=== PATIENT | female | born 1995 | race Caucasian/White ===

== ENCOUNTER 2025-08-09 19:51 | Emergency (ER) | payer OTHER, SELFPAY ==
--- OUTSIDE RECORDS SUMMARY | 2025-07-20 11:00 | XMS_ITS | Encounter Summary ---
[facility] Organization [facility] Address [address] [place] [address] Care Team Providers Care Core Sticker Name Role Phone Urban Huerta MD Primary Care Provider +1- [phone] Reason for Visit * Reason Comments CONSULT Encounter Details Date Type Department Care Team (Late st Contact Info) Description 07/20/2025 11:00 AM CDT Office Visit [facility] [place] [facility]-MARKET DEVELOPMENT TRAINER [place] [address] [place], [place] [address] Sophy Bianchi MD [address] [place], [place] [address] Irregular periods/menstrual cycles (Primary Dx); Morbid obesity (HRC); Bicornuate uterus Social History Tobacco Use Types Packs/Day Years Used Date Smoking Tobacco: Never Tobacco Cessation:Counseling Given: No Alcohol Use Standard Drinks/Week Comments Never 0 (1 standard drink = 0.6 oz pur e alcohol) Comments No Sex and Gender Information Value Date Recorded Sex Assigned at Not on file Legal Sex Female 5:39 AM CDT Gender Identity Not on file Sexual Orientation Lesbian 07/20/2025 10 :56 AM CDT documented as of this encounter Last Filed Vital Signs Vital Sign Reading Time Taken Comments Blood Pressure 122/92 07/20/2025 10:55 AM CDT Pulse 96 07/20/2025 10:55 AM CDT Temperature - - Respiratory Rate - - Oxygen Saturation - - Inhaled Oxygen Concentration - - Weight 167.8 kg (370 lb) 07/20/2025 10:55 AM CDT Height - - Body Mass Index - - documented in this encounter Progress Notes * Sophy Bianchi MD - 07/20/2025 11:00 AM CDT Chief Complaint Patient presents with CONSULT HPI: 29 y.o. presents for consultation as she would like to have a baby. , same sex relationship. They have a male selected to be their sperm donor and want to start with artifical insemination at home. Other than her morbid obesity her health has been good. As fas as ob gyn issues she has a long hx of irregular periods, has never been able to detect any ovulation. Currently on an OCPfor cycle control. She had been working with a MARKET DEVELOPMENT TRAINER out of [facility] and had a pelvic ultrasound this past summer suggestive of PCOS and a septate vs bicornuate uterus. She does not believe she has had hormone testing yet. She did have a hysteroscopy this summer to remove polyps and look at the septum.OP note not available for my review but she states the septum was described as broad based and thick and was not resected. Of note she is currently taking Zepbound and plans to continue this until she conceives as she has already lost 70 lbs and does nto want to lose the progress she has made in case it takes her awhile to conceive. Past Medical History[1] Past Surgical History[2] Social History Tobacco Use Smoking status: Never Smokeless tobacco: Not on file Substance Use Topics Alcohol use: Never Physical Exam: Filed Vitals: 07/20/25 1055 BP: (!) 122/92 Pulse: 96 Weight: (!) 370 lb (167.8 kg) General: in no apparent distress Assessment/Plan: ICD-10-CM 1. Irregular periods/menstrual cycles N92.6 Anti-Mullerian Hormone, Adult Females FSH Hgb A1C TSH Androstenedione DHEA Sulfate (17) [place] Progesterone Testosterone, female or children Progesterone Adult letrozole (FEMARA) 2.5 MG tablet 2. Morbid obesity (HRC) E66.01 3. Bicornuate uterus Q51.3 Labs as above to finish her fertility evaluation. Discussed ovulation induction with letrozole day 3-7 of her cycle. She will then start ovulation testing on day 10 of her cycle with home insemination based on that. On day 22-24 of her cycle she will come in for a progesterone level to confirm ovulation. If non- ovulatory will end the cycle with Provera and increase the Letrozole dose for the nextcycle. Once we know she is ovulating would try this for 3-6 months before going to formal IUI. I did let her know that we do not offer IUI here at [facility]. We also had a yonathan discussion about being on Zepbound in the preconception period. Typically we would have women go off of their GLP-1 me dication 2 months prior to conception. She plans to continue until she has a + test. I lether know that we have no data on the safety of this in as far as complications with the itself or teratogen/miscarriage data. Ultimately it is her decision. All questions answered. Will continue to follow. Billing based on : ELAINA Bianchi MD [1] Past Medical History: Diagnosis Date Bicornuate uterus 07/20/2025 Endometrial polyp s/p hysteroscopy April 2025 Irregular periods/menstrual cycles 07/20/2025 ?PCOS Morbid obesity (HRC) 07/20/2025 [2] Past Surgical History: Procedure Laterality Date OPERATIVE HYSTEROSCOPY 04/2025 endometrial polyps documented in this encounter Plan of Treatment Upcoming Encounters Date Type Department Care Team (Late st Contact Info) Description 08/15/2025 10:00 AM CDT Appointment [facility] [address] [place] [address] Scheduled Orders Name Type Priority Associated Diagnoses Orde r Schedule Progesterone Adult Lab Routine Irregular periods/menstrual cycles Expected: 08/19/2025 (Approximate), Expires: 11/17/2025 documented as of this encounter Results * Testosterone, female or children (07/20/2025 11:22 AM CDT) Testosterone Female or Children 45 9 - 55 ng/dL 07/24/2025 1:58 PM CDT [facility] Comment: REFERENCE INTERVAL: Testosterone by Clinical Laboratory Service Teacher Females Premenopausal 9-55 ng/dL Postmenopausal 5-32 ng/dL INTERPRETIVE INFORMATION: Testosterone by Clinical Laboratory Service Teacher Free or bioavailable testosterone measurements may provide supportive information. For individuals on testosterone-suppressing hormone therapies (e.g., antiandrogens or estrogens), refer to cisgender female reference intervals. For a complete set of all established reference intervals, refer to ltd.[employer]/Tests/Pub/1551161. This test was developed and its performance characteristics determined by [employer]. It has not been cleared or approved by the US Food and Drug Administration. This test was performed in a CLIA certified laboratory and is intended for clinical purposes. Performed By: [employer] [address] [place] [address] Information Technology Coordinator: Paolo Brewer MD, PhD CLIA Number: [id number] Blood Venipuncture / Unknown 07/20/2025 11:22 AM CDT 07/20/2025 11:22 AM CDT Sophy Bianchi MD LAB_1 Final Result [email or web address] CLIA: [id number] [address] [place] [address] * (17) [place] Progesterone (07/20/2025 11:22 AM CDT) 17-Hydroxyprogester one, HPLC-MS/MS 28.70 <=206.00 ng/dL 07/25/2025 4:51 AM CDT [employer] Comment: INTERPRETIVE INFORMATION for 17-Hydroxyprogesterone in females: Follicular 15 to 70 ng/dL Luteal 35 to 290 ng/dL REFERENCE INTERVAL: 17-Hydroxyprogesterone Qnt, HPLC-MS/MS Access complete set of age- and/or gender-specific reference intervals for this test in the [facility]- [facility] Test Directory ([employer]). This test was developed and its performance characteristics determined by [employer]. It has not been cleared or approved by the US Food and Drug Administration. This test was performed in a CLIA certified laboratory and is intended for clinical purposes. Performed By: [employer] [address] [place] [address] Information Technology Coordinator: Paolo Brewer MD, PhD CLIA Number: [id number] Blood Venipuncture / Unknown 07/20/2025 11:22 AM CDT 07/20/2025 11:22 AM CDT Sophy Bianchi MD LAB_1 Final Result Performing Organization Address City/[facility]/ZIP Co de Phone Number [facility] CLIA: [id number] [address] * DHEA Sulfate (07/20/2025 11:22 AM CDT) DHEA Sulfate 172 23 - 266 mcg/dl 07/21/2025 10:24 AM CDT [facility] Blood Venipuncture / Unknown 07/20/2025 11:22 AM CDT 07/20/2025 11:22 AM CDT Sophy Bianchi MD LAB_1 Final Result Performing Organization Address City/[facility]/ZIP Co de Phone Number [facility] CLIA: [id number] [address] [place] [address] * Androstenedione (07/20/2025 11:22 AM CDT) Androstenedione 1.105 0.260 - 2.140 ng/mL 07/24/2025 1:58 PM CDT [facility] Comment: INTERPRETIVE INFORMATION: Androstenedione, Females 18 years and older Post-menopausal: 0.13-0.82 ng/mL REFERENCE INTERVAL: Androstenedione by TMS Access complete set of age- and/or gender-specific reference intervals for this test in the nap- [facility] Test Directory ([employer]). This test was developed and its performance characteristics determined by [employer]. It has not been cleared or approved by the US Food and Drug Administration. This test was performed in a CLIA certified laboratory and is intended for clinical purposes. Performed By: [employer] [address] [place] [address] Information Technology Coordinator: Paolo Brewer MD, PhD CLIA Number: [id number] Blood Venipuncture / Unknown 07/20/2025 11:22 AM CDT 07/20/2025 11:22 AM CDT Result Venkatesh Bianchi MD LAB_1 Final Result [facility] CLIA: [id number] [address] [id number] * TSH (07/20/2025 11:22 AM CDT) Pathologist [facility] TSH, Sensitive 2.34 0.30 - 4.50 uIU/mL 07/20/2025 2:49 PM CDT [facility] Blood Venipuncture / Unknown 07/20/2025 11:22 AM CDT 07/20/2025 11:22 AM CDT us Sophy Bianchi MD LAB_1 Final Result Performing Organization Address City/[facility]/ZIP Co de Phone Number [facility] CLIA: [id number] [address] [place] [address] * Hgb A1C (07/20/2025 11:22 AM CDT) Pathologist [facility] Hemoglobin A1C 5.5 <=5.6 % 07/20/2025 5:29 PM CDT [facility] Estimated Average Glucose (Calc) 111 < 117 mg/dL 07/20/2025 5:29 PM CDT [facility] Comment:Estimated average gl ucose (eAG) converts A1c into glucose units (mg/dL) and estimates average glucose over the past approximately 3 months. The eAG reference interval (<117 mg/dL) corresponds to an A1c of <5.7%. Blood Venipuncture / Unknown 07/20/2025 11:22 AM CDT 07/20/2025 11:22 AM CDT Result Venkatesh Bianchi MD LAB_1 Final Result [facility] CLIA: [id number] [address] * FSH (07/20/2025 11:22 AM CDT) FSH 1.4 mIU/mL 07/20/2025 2:49 PM CDT [facility] Blood Venipuncture / Unknown 07/20/2025 11:22 AM CDT 07/20/2025 11:22 AM CDT Narrative [facility] - 07/20/2025 2:49 PM CDT Expected values for mensturating females Follicular Phase: 3.0-8.1 mIU/mL Mid-Cycle Peak: 2.6-16.7 mIU/mL Luteal Phase: 1.4-5.5 mIU/mL Post Menopausal Females without HRT: 26.8-133.4 mIU/mL Sophy Bianchi MD LAB_1 Final Result [facility] CLIA: [id number] [address] [place] [address] * Anti-Mullerian Hormone, Adult Females (07/20/2025 11:22 AM CDT) Pathologist [facility] Anti-M llerian Hormone, Adult Females 1.22 0.36 - 10.07 ng/mL 07/21/2025 10:57 AM CDT [facility] Blood Venipuncture / Unknown 07/20/2025 11:22 AM CDT 07/20/2025 11:22 AM CDT us Sophy Bianchi MD LAB_1 Final Result [facility] CLIA: [id number] [address] documented in this encounter Visit Diagnoses Diagnosis Irregular periods/menstrual cycles- Primary Irregular menstrual cycle Morbid obesity (HRC) Morbid obesity Bicornuate uterus documented in this encounter Care Teams Core Sticker Relationship Specialty Start Date End Date Urban Huerta MD [facility] [place] [address] PCP - General 10/31/19 documented as of this encounter
--- OUTSIDE RECORDS SUMMARY | 2025-07-20 11:30 | XMS_ITS | Encounter Summary ---
Author Organization [facility] Address [address], [place] [address] Care Team Providers Care Ethernet Network Architect Name Role Phone Urban Huerta MD Primary Care Provider +1- [phone] Encounter Details Date Type Department Care Team (Late st Contact Info) Description 07/20/2025 11:30 AM CDT Lab Visit [address] [address] Irregular periods/menstrual cycles Social History Tobacco Use Types Packs/Day Years Used Date Smoking Tobacco: Never Alcohol Use Standard Drinks/Week Comments Never 0 (1 standard drink = 0.6 oz pur e alcohol) Comments No Sex and Gender Information Value Date Recorded Sex Assigned at Not on file Legal Sex Female 5:39 AM CDT Gender Identity Not on file Sexual Orientation Lesbian 07/20/2025 10 :56 AM CDT documented as of this encounter Plan of Treatment Upcoming Encounters Date Type Department Care Team (Late st Contact Info) Description 08/15/2025 10:00 AM CDT Appointment [facility] [address] [place] [address] documented as of this encounter Procedures Procedure Name Priority Date/Time Associated Diagnosis Comments ANDROSTENEDIONE Routine 07/20/2025 11:22 AM CDT Irregular periods/menstrual cycles TESTOSTERONE, FEMALE OR CHILDREN Routine 07/20/2025 11:22 AM CDT Irregular periods/menstrual cycles ANTI-MULLERIAN HORMONE,ADULT FEMALE Routine 07/20/2025 11:22 AM CDT Irregular periods/menstrual cycles TSH, SENSITIVE Routine 07/20/2025 11:22 AM CDT Irregular periods/menstrual cycles DHEA SULFATE Routine 07/20/2025 11:22 AM CDT Irregular periods/menstrual cycles (17) [place] PROGESTERONE PLASMA/SE Routine 07/20/2025 11:22 AM CDT Irregular periods/menstrual cycles FSH Routine 07/20/2025 11:22 AM CDT Irregular periods/menstrual cycles HGB A1C Routine 07/20/2025 11:22 AM CDT Irregular periods/menstrual cycles documented in this encounter Results * Testosterone, female or children (07/20/2025 11:22 AM CDT) Testosterone Female or Children 45 9 - 55 ng/dL 07/24/2025 1:58 PM CDT [employer] Comment: REFERENCE INTERVAL: Testosterone by Scalp Specialist Females Premenopausal 9-55 ng/dL Postmenopausal 5-32 ng/dL INTERPRETIVE INFORMATION: Testosterone by Scalp Specialist Free or bioavailable testosterone measurements may provide supportive information. For individuals on testosterone-suppressing hormone therapies (e.g., antiandrogens or estrogens), refer to cisgender female reference intervals. For a complete set of all established reference intervals, refer to l[employer]/Tests/Pub/[id number]. This test was developed and its performance characteristics determined by [email or web address]. It has not been cleared or approved by the US Food and Drug Administration. This test was performed in a CLIA certified laboratory and is intended for clinical purposes. Performed By: [email or web address] [address] [place] [address] Vp Rheumatology: Paolo Brewer MD, PhD CLIA Number: [id number] Blood Venipuncture / Unknown 07/20/2025 11:22 AM CDT 07/20/2025 11:22 AM CDT Sophy Bianchi MD LAB_1 Final Result Performing Organization Address [facility] Co de Phone Number [facility] [employer] CLIA: [id number] [address] * (17) [place] Progesterone (07/20/2025 11:22 AM CDT) 17-Hydroxyprogester one, HPLC-MS/MS 28.70 <=206.00 ng/dL 07/25/2025 4:51 AM CDT [employer] Comment: INTERPRETIVE INFORMATION for 17-Hydroxyprogesterone in females: Follicular 15 to 70 ng/dL Luteal 35 to 290 ng/dL REFERENCE INTERVAL: 17-Hydroxyprogesterone Qnt, HPLC-MS/MS Access complete set of age- and/or gender-specific reference intervals for this test in the [employer] Test Directory ([employer]). This test was developed and its performance characteristics determined by [email or web address]. It has not been cleared or approved by the US Food and Drug Administration. This test was performed in a CLIA certified laboratory and is intended for clinical purposes. Performed By: [email or web address] [address] [place] [address] Vp Rheumatology: Paolo Brewer MD, PhD CLIA Number: [id number] Blood Venipuncture / Unknown 07/20/2025 11:22 AM CDT 07/20/2025 11:22 AM CDT Sophy Bianchi MD LAB_1 Final Result Performing Organization Address City/[facility]/ZIP Co de Phone Number [facility] [employer] CLIA: [id number] [address] * DHEA Sulfate (07/20/2025 11:22 AM CDT) DHEA Sulfate 172 23 - 266 mcg/dl 07/21/2025 10:24 AM CDT [facility] Blood Venipuncture / Unknown 07/20/2025 11:22 AM CDT 07/20/2025 11:22 AM CDT Sophy Bianchi MD LAB_1 Final Result Performing Organization Address City/[facility] Co de Phone Number [facility] CLIA: [id number] [address] * Androstenedione (07/20/2025 11:22 AM CDT) Androstenedione 1.105 0.260 - 2.140 ng/mL 07/24/2025 1:58 PM CDT [employer] Comment: INTERPRETIVE INFORMATION: Androstenedione, Females 18 years and older Post-menopausal: 0.13-0.82 ng/mL REFERENCE INTERVAL: Androstenedione by TMS Access complete set of age- and/or gender-specific reference intervals for this test in the [facility] Test Directory ([employer]). This test was developed and its performance characteristics determined by [email or web address]. It has not been cleared or approved by the US Food and Drug Administration. This test was performed in a CLIA certified laboratory and is intended for clinical purposes. Performed By: [email or web address] [address] [place] [address] Vp Rheumatology: Paolo Brewer MD, PhD CLIA Number: [id number] Blood Venipuncture / Unknown 07/20/2025 11:22 AM CDT 07/20/2025 11:22 AM CDT Sophy Bianchi MD LAB_1 Final Result Performing Organization Address [facility]/ZIP Co de Phone Number [facility] [employer] CLIA: [id number] [address] [place] [address], [place] * TSH (07/20/2025 11:22 AM CDT) TSH, Sensitive 2.34 0.30 - 4.50 uIU/mL 07/20/2025 2:49 PM CDT [facility] Blood Venipuncture / Unknown 07/20/2025 11:22 AM CDT 07/20/2025 11:22 AM CDT Sophy Bianchi MD LAB_1 Final Result [facility] CLIA: [id number] [address] * Hgb A1C (07/20/2025 11:22 AM CDT) Hemoglobin A1C 5.5 <=5.6 % 07/20/2025 5:29 PM CDT [facility] Estimated Average Glucose (Calc) 111 < 117 mg/dL 07/20/2025 5:29 PM CDT [facility] Comment:Estimated average gl ucose (eAG) converts A1c into glucose units (mg/dL) and estimates average glucose over the past approximately 3 months. The eAG reference interval (<117 mg/dL) corresponds to an A1c of <5.7%. Blood Venipuncture / Unknown 07/20/2025 11:22 AM CDT 07/20/2025 11:22 AM CDT Sophy Bianchi MD LAB_1 Final Result [facility] CLIA: [id number] [address] [place] [address] * FSH (07/20/2025 11:22 AM CDT) FSH 1.4 mIU/mL 07/20/2025 2:49 PM CDT [facility] Blood Venipuncture / Unknown 07/20/2025 11:22 AM CDT 07/20/2025 11:22 AM CDT [facility] - 07/20/2025 2:49 PM CDT Expected values for mensturating females Follicular Phase: 3.0-8.1 mIU/mL Mid-Cycle Peak: 2.6-16.7 mIU/mL Luteal Phase: 1.4-5.5 mIU/mL Post Menopausal Females without HRT: 26.8-133.4 mIU/mL us Sophy Bianchi MD LAB_1 Final Result [facility] CLIA: [id number] [address] [place], [place] [address] * Anti-Mullerian Hormone, Adult Females (07/20/2025 11:22 AM CDT) Anti-M llerian Hormone, Adult Females 1.22 0.36 - 10.07 ng/mL 07/21/2025 10:57 AM CDT [facility] Blood Venipuncture / Unknown 07/20/2025 11:22 AM CDT 07/20/2025 11:22 AM CDT Sophy Bianchi MD LAB_1 Final Result [facility] CLIA: [id number] [address] documented in this encounter Visit Diagnoses Diagnosis Irregular periods/menstrual cycles Irregular menstrual cycle documented in this encounter Care Teams Ethernet Network Architect Relationship Specialty Start Date End Date Urban Huerta MD [address] [place] [address] PCP - General 10/31/19 documented as of this encounter
--- OUTSIDE RECORDS SUMMARY | 2025-08-09 19:54 | XMS_ITS | Clinical Summary ---
Author Organization [facility] Address [address] [place] [id number] Care Team Providers Care Bread Icer Name Role Phone Alia Heart MD Primary Care Provi terri Allergies No known active allergies Medications [id number] ic acid ( 19) 29 mg iron- 1 mg chew Chew by mouth once daily. Active INOSITOL-D CHIRO INOSITOL ORAL Take 2 Tablets by mouth once daily. Active norethindrone- eth estradiol (0.5-35 mg-mcg) (Necon 0.5/35 (28)) 0.5-35 mg-mcg tabletIndicati ons:Irregular periods Take 1 Tablet by mouth once daily. 84 Tablet 3 04/17/20 25 Active medroxyPROGEST ERone (Provera) 10 mg tabletIndicati ons:Menorrhagi a with regular cycle TAKE 2 TIMES A DAY FOR 7 DAYS. 14 Tablet 3 05/10/20 25 Active ferrous sulfate 325 mg delayed release tabletIndicati ons:Anemia due to acute blood loss Take 1 Tablet (325 mg) by mouth once every other day. On empty stomach and with Vitamin C source. 45 Tablet 05/15/20 25 Active acetaminophen (TYLENOL) 325 mg tabletIndicati ons:Abnormal uterine bleeding (AUB) Take 1-2 Tablets (325-650 mg) by mouth every 4 hours if needed (mild pain). Max acetaminophen dose: 4000mg in 24 hrs. 05/16/20 25 Active ibuprofen (ADVIL; MOTRIN) 200 mg tabletIndicati ons:Abnormal uterine bleeding (AUB) Take 2-4 Tablets (400-800 mg) by mouth every 6 hours if needed for Pain (mild pain). 05/16/20 25 Active ubidecarenone/ vitamin E mixed (COQ10 SG 100 ORAL) Take by mouth. Ac tive Zepbound 15 mg/0.5 mL penIndications :Class 3 severe obesity with serious comorbidity and body mass index (BMI) of 60.0 to 69.9 in adult, unspecified obesity type (HC) ADMINISTER 15 MG UNDER THE SKIN 1 TIME WEEKLY 2 mL 2 07/25/20 25 Active tirzepatide (weight loss) (Zepbound) 15 mg/0.5 mL penIndications :Class 3 severe obesity with serious comorbidity and body mass index (BMI) of 60.0 to 69.9 in adult, unspecified obesity type (HC) Inject 15 mg subcutaneous once weekly. 2 mL 2 04/18/20 25 2024 Discontinued Active Problems Problem Noted Date Diagnosed Date Bicornuate uterus, partial 07/12/2025 Pap smear for cervical cancer screening 07/11/20 Overview (07/11/2024): 06/2024 NIL/HPV negative. Plan: Pap/HPV due 06/2029. Morbid obesity with BMI of 50.0-59.9, adult 07/28 Ganglion cyst of dorsum of right wrist 6 Elevated BP 08/25/2016 Resolved Problems Problem Noted Date Diagnosed Date Resolved Date Endometrial polyp 07/12/2025 07/12/2025 Encounters Date Type Department Care Team Description 07/20/[address] [address] Alia Heart MD Refill Request (Zepbound) 07/12/2025 10:55 AM CDT Office Visit [address] [address] Alia Heart MD Medication Management 07/12/2025 Travel 07/10/2025 Travel 07/03/2025 11:00 AM CDT Office Visit [facility] [address] [place] [address] [address] [place] [address] Ata Gudino MBBS Post-op (DOS 05/16/2025) 07/02/2025 Travel 05/16/2025 3:03 PM CDT Anesthesia Event [address] [address] Silva Abebe CRNA Nye, Hoyt William, MD 05/16/2025 12:32 PM CDT - 05/16/2025 1:47 PM CDT Surgery [address] [address] Ata Gudino MBBS HYSTEROSCOPY, DILATION AND CURETTAGE, POLYPECTOMY 05/16/2025 9:55 AM CDT - 05/16/2025 6:08 PM CDT Hospital Encounter [address] [address] Ata Gudino MBBS Abnormal uterine bleeding (AUB) (Primary Dx); Uterus, bicornuate Discharge Disposition: Home Self Care 05/15/2025 Travel 05/12/2025 10:00 AM CDT Office Visit [facility] [address] [place] [address] Clare Navarrete MD Pre-Op Exam 05/12/2025 Travel 05/09/2025 Telephone [facility] [address] [place] [address] Ata Gudino MBBS Medication Management (medroxyPROGESTERon e (Provera) 10 mg tablet) 05/09/2025 Travel from Last 3 Months Immunizations Immunization Administration Dates Next Due COVID-19 VACCINE SPIKEVAX (M ODERNA 50MCG/0.5ML) 12YO+ PFS 04/12/2024 COVID-19 vaccine (Moderna 100mcg/0.5mL) PFMDV 01/03/2021,12/06/2020 DTP 01/17/1999, 5,03/12/1994,1993,1993 Hepatitis B (Peds) 07/23/1994,1993, 993 Hib Conjugate, Unspecified 12/12/1994,,01/17/1994,1993 INFLUENZA, IIV3 PF (AGE >= 6 MO) 11/25/2024 Influenza Virus, Unspecified 2017 Influenza, IIV4 09/25/2021,2017,08/25/2016 MMR 01/17/1999,12/12/1994 Oral Polio Vaccine 01/17/1999, 5,01/17/1994,1993 Tdap 08/25/2016,07/08/2006 Tuberculin (PPD) 09/07/2012,08/27/2012 Varicella Vaccine 07/24/2003 Family History Medical History Relation Name Comments Hypertension Father Other Mother pre DM Relation Name Status Comments Father Mother Social History Tobacco Use Types Packs/Day Years Used Date Smoking Tobacco: Never Passive Smoke Exposure: Never Smokeless Tobacco: Never Tobacco Cessation:Counseling Given: Not Answered Alcohol Use Standard Drinks/Week Comments Not Currently 0 (1 standard drink = 0.6 oz pure alcohol) up to 7 drinks every other weekend PHQ-2 Answer Date Recorded PHQ-2 TOTAL SCORE 0 04/24/2025 Social Connections Answer Date Recorded Do you often feel lonely or isolated from those around you? 0 07/10/2025 Alcohol Use Answer Date Recorded How often do you have a drink containing alcohol ? 0 07/12/2025 Average Number of Drinks Not on file 025 How often do you have five or more drinks on one occasion? 0 07/12/2025 Financial Resource Strain Answer Date R ecorded Difficulty of Paying Living Expenses 3 04/20/2025 Difficulty of Paying Living Expenses Not on file 04/20/2025 Food Insecurity Answer Date Recorded Do you worry your food will run out before you are able to buy more? 1 07/10/2025 Transportation Needs Answer Date Record ed Does lack of transportation keep you from medica l appointments? 1 07/10/2025 Does lack of transportation keep you from work, meetings or getting things that you need? 1 07/10/2025 Housing Stability Answer Date Recorded What is your housing situation today? 1 07/10/2025 Utilities Answer Date Recorded Do you have trouble paying f or utilities (for example, heat, electricity, water, phone)? 1 07/10/2025 Comments No Sex and Gender Information Value Date Recorded Sex Assigned at Female 04/08/2024 8:03 PM CDT Legal Sex Female 5:30 AM [employer] Gender Identity Female 04/08/2024 8:03 PM CDT Sexual Orientation Lesbian or Tang 04/08/2024 8: 03 PM CDT Occupation Industry Job Start Date Job End Date [employer], draws blood Not on file Not on file Not o n file Obstetrics History Last Filed Vital Signs Vital Sign Reading Time Taken Comments Blood Pressure 120/86 07/12/2025 11:07 AM CDT Pulse 84 07/12/2025 11:07 AM CDT Temperature 36.4 C (97.5 F) 05/16/2025 5:32 PM CDT Respiratory Rate 18 05/16/2025 6:03 PM CDT Oxygen Saturation 99% 05/16/2025 6:03 PM CDT Inhaled Oxygen Concentration - - Weight 170.6 kg (376 lb 3.2 oz) 025 11:07 AM CDT Height 169.1 cm (5' 6.58) 07/12/2025 1 1:07 AM CDT Body Mass Index 59.68 07/12/2025 11:07 AM CDT Plan of Treatment Scheduled Procedures Name Priority Associated Diagnoses Date/Ti me SURGICAL PROCEDURE (TYPE PRO CEDURE DESCRIPTION BELOW) Endometrial polyp Health Maintenance Due Date Last Done Comments HPV series for age 9-45 (1 - 3-dose SCDM series) 2020 COVID-19 vaccine series ( season) 2025 04/12/2024, 09/08/2021, 01/03/2021, Additional history exists Influenza Vaccine (#1) 2025 , 09/25/2021, 2017, Additional history exists Depression screening for age 12+ 04/24/2026 04/24/2025, 04/12/2024, 09/25/2021, Additional history exists BMI (ht and wt on same day) for age 18+ 07/12/2026 07/12/2025, 04/17/2025, 04/12/2024, Additional history exists Tetanus booster 08/25/2026 08/25/2016, 07/08/2006 Pap test for age 21-65 06/29/2029 06/29/2024, 2023 RSV vaccine for adults or (1 - 1-dose 75+ series) 2068 Hepatitis B series for 19+ Completed 07/23, 1993, 1993 HIV for age 15-65 Completed 09/25/2021 Hepatitis C screening for age 18-79 Completed 09/25/2021 Pneumococcal series for age 6-49 Aged Out No longer eligible based on patient's age to complete this topic Procedures Procedure Name Priority Date/Time Associated Diagnosis Comments COMP METABOLIC PANEL Routine 07/12/2025 12:01 PM CDT Morbid obesity with BMI of 50.0-59.9, adult (HC) TSH WITH REFLEX Routine 07/12/2025 12:01 PM CDT Morbid obesity with BMI of 50.0-59.9, adult (HC) VITAMIN D 25 (DEFICIENCY) Routine 07/12/2025 12:01 PM CDT Morbid obesity with BMI of 50.0-59.9, adult (HC) LIPID PANEL W REFLEX MEASURED LDL Routine 07/12/2025 12:01 PM CDT Morbid obesity with BMI of 50.0-59.9, adult (HC) HEMOGLOBIN Routine 07/12/2025 12:01 PM CDT Anemia due to acute blood loss HEMOGLOBIN A1C Routine 07/12/2025 12:01 PM CDT Morbid obesity with BMI of 50.0-59.9, adult (HC) PATH TISSUE EXAM Today 05/16/2025 4:08 PM CDT SUPRAGLOTTIC-LMA Routine 05/16/2025 3:25 PM CDT HYSTEROSCOPY WITH MORCELLATOR Tier 4: > 90 days 05/16/2025 2:53 PM CDT Menorrhagia with regular cycle Case Notes T/F - 45MIN - @MAIN DUE TO BMI Special Needs HT 5' 6.5 WT 172.1 kg BMI 60.32 URINE Preop 05/16/2025 11:05 AM CDT SCAN-CARDIAC STRIP 05/16/2025 12 :00 AM CDT HEMOGLOBIN Routine 05/12/2025 11:31 AM CDT Lightheaded FERRITIN Routine 05/12/2025 11:31 AM CDT Lightheaded IRON PLUS IRON BINDING CAP Routine 05/12/2025 11:31 AM CDT Lightheaded HPV HIGH RISK Routine 06/29/2024 10:05 AM CDT Pap smear for cervical cancer screening ANTI HIV 1/2 Routine 09/25/2021 1:10 PM [employer] Annual physical exam ANTI HCV Routine 09/25/2021 1:10 PM E[employer] Annual physical exam from Last 3 Months or Most Recently Relevant to Health Maintenance Results * HEMOGLOBIN A1C (07/12/2025 12:01 PM CDT) HEMOGLOBIN A1C 5.4 <5.7 % 07/13/2025 5:59 AM CDT [facility] Comment: For the purpose of screening for the presence of diabetes: <5.7% Consistent with the absence of diabetes 5.7-6.4% Consistent with increased risk for diabetes (prediabetes) > or =6.5% Consistent with diabetes This assay result is consistent with a decreased risk of diabetes. Currently, no consensus exists regarding use of hemoglobin A1c for diagnosis of diabetes in children. According to [place] Diabetes Association (ADA) guidelines, hemoglobin A1c <7.0% represents optimal control in non- diabetic patients. Different metrics may apply to specific patient populations. Standards of Medical Care in Diabetes(ADA). Blood BLOOD SPECIMEN / Unknown [facility] / Unknown 07/12/2025 12:01 PM CDT 07/12/2025 12:01 PM CDT Alia Heart MD CHEMISTRY Fin al Result Performing Organization Address [facility]/ZIP Co de Phone Number [employer] [address] [address], * TSH WITH REFLEX (07/12/2025 12:01 PM CDT) TSH W/REFLEX TO FT4 2.57 mIU/L 07/13/2025 4:43 AM CDT [facility] Comment: Reference Range > or = 20 Years 0.40-4.50 Ranges First trimester 0.26-2.66 Second trimester 0.55-2.73 Third trimester 0.43-2.91 Blood BLOOD SPECIMEN / Unknown [facility] / Unknown 07/12/2025 12:01 PM CDT 07/12/2025 12:01 PM CDT us Alia Heart MD CHEMISTRY Fin al Result Performing Organization Address [facility]/ZIP Co de Phone Number [employer] [address] [address], * (ABNORMAL) LIPID PANEL W REFLEX MEASURED LDL (07/12/2025 12:01 PM CDT) CHOLESTEROL, TOTAL 204(H) <200 mg/dL 07/13/2025 5:38 AM CDT [facility] TRIGLYCERIDES 158(H) <150 mg/dL 07/13/2025 5:38 AM CDT [facility] HDL CHOLESTEROL 75 > OR = 50 mg/dL 07/13/2025 5:38 AM CDT [facility] NON HDL CHOLESTEROL 129 <130 mg/dL (calc) 07/13/2025 5:38 AM CDT [facility] Comment: For patients with diabetes plus 1 major ASCVD risk factor, treating to a non-HDL-C goal of <100 mg/dL (LDL-C of <70 mg/dL) is considered a therapeutic option. CHOL/HDLC RATIO 2.7 <5.0 (calc) 07/13/2025 5:38 AM CDT [facility] LDL-CHOLESTEROL 104(H) mg/dL (calc) 07/13/2025 5:38 AM CDT [facility] Comment: Reference range: <100 Desirable range <100 mg/dL for primary prevention; <70 mg/dL for patients with CHD or diabetic patients with > or = 2 CHD risk factors. LDL-C is now calculated using the Carloz calculation, which is a validated novel method providing better accuracy than the Friedewald equation in the estimation of LDL-C. Ganga SS et al. OMAR. 2013;310(19): 1047-1752 (http://education.[employer].RoleStar/faq/TMJ425) Blood BLOOD SPECIMEN / Unknown [facility] / Unknown 07/12/2025 12:01 PM CDT 07/12/2025 12:01 PM CDT Alia Heart MD CHEMISTRY Fin al Result [employer] [address] [address], * (ABNORMAL) VITAMIN D 25 (DEFICIENCY) (07/12/2025 12:01 PM CDT) [facility] VITAMIN D,25-OH,TOTAL,IA 28(L) 30 - 100 ng/mL 07/13/2025 4:43 AM CDT [employer] Comment: Vitamin D Status 25-OH Vitamin D: Deficiency: <20 ng/mL Insufficiency: 20 - 29 ng/mL Optimal: > or = 30 ng/mL For 25-OH Vitamin D testing on patients on D2-supplementation and patients for whom quantitation of D2 and D3 fractions is required, the QuestAssureD(TM) 25-OH VIT D, (D2,D3), LC/MS/MS is recommended: order code 06133 (patients >2yrs). See Note 1 Note 1 For additional information, please refer to http://education.[employer]/faq/XLI238 (This link is being provided for informational/ educational purposes only.) Blood BLOOD SPECIMEN / Unknown [facility] / Unknown 07/12/2025 12:01 PM CDT 07/12/2025 12:01 PM CDT Alia Heart MD SEND OUTS Fin al Result Performing Organization Address [facility] de Phone Number [employer] [address] [address], [place] [phone] * (ABNORMAL) HEMOGLOBIN (07/12/2025 12:01 PM CDT) Only the most recent of2 resultswithin the time period is included. HEMOGLOBIN 11.2(L) 11.7 - 15.5 g/dL 07/13/2025 3:24 AM CDT [facility] MCV 73.1(L) 80.0 - 100.0 fL 07/13/2025 3:24 AM CDT [facility] Blood BLOOD SPECIMEN / Unknown [facility] / Unknown 07/12/2025 12:01 PM CDT 07/12/2025 12:01 PM CDT us Alia Heart MD HEMATOLOGY Fin al Result Performing Organization Address [facility] Co de Phone Number [employer] [address] [address], [place] [phone] * COMP METABOLIC PANEL (07/12/2025 12:01 PM CDT) SODIUM 137 135 - 146 mmol/L 07/13/2025 5:38 AM CDT [facility] POTASSIUM 4.7 3.5 - 5.3 mmol/L 07/13/2025 5:38 AM CDT [facility] CHLORIDE 104 98 - 110 mmol/L 07/13/2025 5:38 AM CDT [facility] CARBON DIOXIDE 24 20 - 32 mmol/L 07/13/2025 5:38 AM CDT [facility] GLUCOSE 75 65 - 99 mg/dL 07/13/2025 5:38 AM CDT [facility] Comment: Fasting reference interval CALCIUM 9.3 8.6 - 10.2 mg/dL 07/13/2025 5:38 AM CDT [facility] CREATININE 0.63 0.50 - 0.97 mg/dL 07/13/2025 5:38 AM CDT [facility] BUN/CREATININE RATIO SEE NOTE: 6 - 22 (calc) 07/13/2025 5:38 AM CDT [facility] Comment: Not Reported: BUN and Creatinine are within reference range. EGFR 122 > OR = 60 mL/min/1. 73m2 07/13/2025 5:38 AM CDT [facility] ALBUMIN 3.8 3.6 - 5.1 g/dL 07/13/2025 5:38 AM CDT [facility] PROTEIN, TOTAL 7.5 6.1 - 8.1 g/dL 07/13/2025 5:38 AM CDT [facility] BILIRUBIN, TOTAL 0.2 0.2 - 1.2 mg/dL 07/13/2025 5:38 AM CDT [facility] ALKALINE PHOSPHATASE 93 31 - 125 U/L 07/13/2025 5:38 AM CDT [facility] ALT 22 6 - 29 U/L 07/13/2025 5:38 AM CDT [facility] AST 19 10 - 30 U/L 07/13/2025 5:38 AM CDT [facility] UREA NITROGEN (BUN) 9 7 - 25 mg/dL 07/13/2025 5:38 AM CDT [facility] GLOBULIN 3.7 1.9 - 3.7 g/dL (calc) 07/13/2025 5:38 AM CDT [facility] ALBUMIN/GLOBULI N RATIO 1.0 1.0 - 2.5 (calc) 07/13/2025 5:38 AM CDT [facility] Blood BLOOD SPECIMEN / Unknown [facility] / Unknown 07/12/2025 12:01 PM CDT 07/12/2025 12:01 PM CDT us Alia Heart MD CHEMISTRY Fin al Result [facility] [address] [place] [address], [place] [phone] * PATH TISSUE EXAM (05/16/2025 4:08 PM CDT) Case Report Pathology Report Case: [id number] Authorizing Provider: Ata Gudino MBBS Collected: 05/16/2025 1608 Ordering Location: [facility] Received: 05/17/2025 0727 Pathologist: Sunday Henry MD Specimen: Endometrial Curettings, Endometrial curettings and polyp 05/19/2025 11:36 AM CDT [facility] Final Diagnosis A) ENDOMETRIUM, CURETTAGE AND POLYPECTOMY: 1. Fragments of benign endometrial polyp(s) 2. Background inactive endometrium with progestin effect 3. Negative for atypia and malignancy 05/19/2025 11:36 AM CDT [facility] at 1136 CDT Clinical Information Prior diagnosis of endometrial polyps with focal glandular crowding ([id number]) 05/19/2025 11:36 AM CDT [facility] Gross Description A) Received fresh labeled with the patient's name and endometrial curettings and polyp, is a 2.7 gram, 2.3 x 2.3 x 0.8 cm aggregate of pink focally hemorrhagic soft tissue fragments within an aspirate collection stockinette. No lesion is seen. Entirely submitted in 3 cassettes. DPL 05/17/2025 05/19/2025 11:36 AM T [facility] Microscopic Description The final diagnosis is based on microscopic examination of appropriate sections of all specimens. 05/19/2025 11:36 AM CDT [facility] Additional Information Interpreted at [facility] - [address], [place] [address] 05/19/2025 11:36 AM T [facility] Tissue (Endometrial Curettings) 05/16/2025 4:08 PM CDT 05/17/2025 7:27 AM CDT Ata CHAPA PATHOLOGY/CYTOLOGY Final Re sult [facility] [address] [place] [address], [facility] SENDOUT INTERNAL ZIP [address] [place] [address] * [facility] PR5 (05/16/2025 3:25 PM CDT) Narrative Silva Abebe CRNA - 05/16/2025 3:25 PM CDT Silva Abebe CRNA 05/16/2025 3:25 PM Procedure: Supraglottic Patient location during procedure: OR Supraglottic Airway Properties Mask Ventilation: easy Type: unique Tube Size: 4 Insertion Attempts: 1 Placement Verification: auscultation and CO2 detection Assessment Assessment: atraumatic and dentition unchanged Silva Abebe GARMENT WORKER ANESTHESIA PX NOTE ORDER ARIANNE Final Result * Urine (05/16/2025 11:05 AM CDT) Pathologist [facility] ,URIN E Negative Negative 05/16/2025 11:18 AM CDT [facility] Urine URINE SPECIMEN / Unknown Non-Blood / Unknown 05/16/2025 11:05 AM CDT 05/16/2025 11:10 AM CDT Ata CHAPA URINE Final Resul t [facility] SENDOUT INTERNAL ZIP [phone] [place] [address] * SCAN-CARDIAC STRIP (05/16/2025 12:00 AM CDT) Narrative 05/16/2025 12:00 AM CDT Ordered by an unspecified provider. Other Clinical Staff OTHER Final Resul t * (ABNORMAL) IRON PLUS IRON BINDING CAP (05/12/2025 11:31 AM CDT) IRON, TOTAL 11(L) 40 - 190 mcg/dL [facility] IRON BINDING CAPACITY 527(H) 250 - 450 mcg/dL (calc) [facility] % SATURATION 2(L) 16 - 45 % (calc) [facility] Blood BLOOD SPECIMEN / Unknown 05/12/2025 11:31 AM CDT 05/12/2025 11:35 AM CDT Narrative [employer] - 05/13/2025 4:47 AM CDT FASTING:NO FASTING: NO Clare Navarrete MD CHEMISTRY Final Result Performing Organization Address [facility]/ZIP Co de Phone Number [employer] [facility] [address] [place] [address], [place] [phone] [facility] [address] [place] [address] * (ABNORMAL) FERRITIN (05/12/2025 11:31 AM CDT) FERRITIN 3(L) 16 - 154 ng/mL [facility] Blood BLOOD SPECIMEN / Unknown 05/12/2025 11:31 AM CDT 05/12/2025 11:35 AM CDT Narrative [facility] - 05/13/2025 5:28 AM CDT FASTING:NO FASTING: NO Clare Navarrete MD CHEMISTRY Final Result Performing Organization Address [facility] Co de Phone Number [employer] [facility] [address] [place] [address], [facility] [address] [place] [address] * HPV HIGH RISK (06/29/2024 10:05 AM CDT) TYPE 16 Negative Negative 07/01/2024 5:04 PM CDT [facility] TYPE 18 Negative Negative 07/01/2024 5:04 PM CDT [facility] OTHER HIGH RISK TYPES Negative Negative 07/01/2024 5:04 PM CDT [facility] Other (Cervical) Non-Blood / Unknown 06/29/2024 10:05 AM CDT 06/30/2024 3:50 PM CDT [facility] LABORATORY-CENTRAL LABORATORY - 07/01/2024 5:04 PM CDT HPV types 16, 18, 31, 33, 35, 39, 45, 51, 52, 56, 58, 59, 66 and 68 DNA were undetectable or below the pre-set threshold. Methodology: Ellie Mala 4800 HPV Test Alia Heart MD MICROBIOLOGY Fin al Result [facility] [address] [place] [address], * ANTI HCV (09/25/2021 1:10 PM [employer]) HEPATITIS C ANTIBODY Non-React francine Non-React francine 09/25/2021 10:42 PM [employer] [facility] Comment:Antibodies to HCV no t detected; does not exclude the possibility of exposure to HCV. Blood BLOOD SPECIMEN / Unknown Venipuncture / Unknown 09/25/2021 1:10 PM [employer] 09/25/2021 1:15 PM E[employer]IAN [employer]EARCH Alia Heart MD SEND OUTS Fin al Result Performing Organization Address [facility]/ZIP Co de Phone Number [facility] [address] [place] [address], * ANTI HIV 1/2 (09/25/2021 1:10 PM ELECTRICIAN RESEARCH) Pathologist [facility] HIV-1/HIV-2 ANTIBODY Non-Reacti ve Non-Reacti ve 09/25/2021 10:42 PM [employer]IAN [employer]EARCH [facility] Comment:HIV-1 p24 and HIV-1/ HIV-2 Ab not detected. Blood BLOOD SPECIMEN / Unknown Venipuncture / Unknown 09/25/2021 1:10 PM E[employer]IAN [employer]EARCH 09/25/2021 1:15 PM ELECT[employer]IAN RESEARCH Alia Heart MD SEND OUTS Fin al Result [facility] [address] [place] [address], from Last 3 Months or Most Recently Relevant to Health Maintenance Insurance MEDICA ELECT Advance Directives * Full Code (Latest Code Status on File) Date Activated Date Inactivated Comments 05/16/2025 10:40 AM 05/16/2025 8:13 PM Question Answer Comments Code Status Discussion: Reviewed Preferences * Full Code Date Activated Date Inactivated Comments 09/17/2007 8:24 AM 09/17/2007 12:58 PM Care Teams Bread Icer Relationship Specialty Start Date End Date Alia Heart MD [address] [place] [id number] PCP - General Family Practice 04/12/24
--- OUTSIDE RECORDS SUMMARY | 2025-08-09 19:54 | XMS_ITS | Encounter Summary ---
Author Organization [facility] Address [address], [place] [address] Care Team Providers Care Division Operations Manager Name Role Phone Urban Huerta MD Primary Care Provider +1- [phone] Reason for Visit * Reason Comments INFERTILITY Encounter Details Date Type Department Care Team (Late st Contact Info) Description 08/09/2025 Telephone [place] [facility] OB-SALES REPRESENTATIVE PRINTING [place] [address] [place] [address] Sophy Bianchi MD [address] [place], [place] [phone] INFERTILITY Social History Tobacco Use Types Packs/Day Years [...] AM CDT documented as of this encounter Nursing Notes * Honey Szymanski RN - 08/09/2025 11:29 AM CDT Contacted pt and reviewed message from Dr Bianchi. Pt acknowledges understanding and is already scheduled for the lab on 08/15/25 which will be CD 22. Pt just wanted to verify. Future Appointments Date Time Provider Department Center 08/15/2025 10:00 AM LAB, [facility] * Sophy Bianchi MD - 08/09/2025 11:19 AM CDT Yes per my last note the plan is: On day 22-24 of her cycle she will come in for a progesterone level to confirm ovulation. If non-ovulatory will end the cycle with Provera and increase the Letrozoledose for the next cycle. Orders are in. Sophy Bianchi MD * Gale Miguel RN - 08/09/2025 11:06 AM CDT Patient calling and is taking 2.5 mg Letrazole for 1st cycle. She is on CD16 and not ovulation. Using OPK strips and Diana kits as well. Using frozen donor sperm. She is wondering if she needs Progesterone done on cd 21 or not? Also, if she continues to not ovulate should she be increasing the dose next cycle? Thank you Future Appointments Date Time Provider Department Center 08/15/2025 10:00 AM LAB, [facility] documented in this encounter Plan of Treatment Upcoming Encounters Date Type Department Care Team (Late st Contact Info) Description 08/15/2025 10:00 AM CDT Appointment [facility] [address] [place] [address] documented as of this encounter Visit Diagnoses Not on filedocumented in this encounter Care Teams Division Operations Manager Relationship Specialty Start Date End Date Urban Huerta MD [address] [place] [address] PCP - General 10/31/19 documented as of this encounter
--- OUTSIDE RECORDS SUMMARY | 2025-08-09 19:54 | XMS_ITS | Clinical Summary ---
Author Organization [facility] Address [address] [place] [address] Care Team Providers Care Voice Engineer Name Role Phone Urban Huerta MD Primary Care Provider +1- [phone] Source Comments You are receiving this document as you are listed as the primary care provider,follow-up provider, or the patient has been referred to you for consultation.This is in compliance with the Medicare and[facility] EHR Incentive Program,which states Providers who transition their patient to another setting of careor provider of care or refers their patient to another provider of care shouldprovide summary care record for each transition of care or referral. [facility] Allergies No known active allergies Medications benzonatate (TESSALON) 100 MG capsule Take 2 Caps by mouth three times a day as needed for Cough. 60 Cap 8 Active Additional Information Patient not taking.Reported on 07/20/2025 Coenzyme Q10 (CO Q-10 OR) 1 Tablet daily. A ctive vitamin-ferrou s fumarate-folic acid (PRENATALPLUS) 27-1 MG tablet Take 1 Tablet by mouth daily. Active ferrous sulfate 325 (65 Fe) MG tablet Take 1 Tablet (325 mg) by mouth daily with meal. Active tirzepatide-we ight management (ZEPBOUND) 15 MG/0.5ML injection Inject 0.5 mL (15 mg) subcutaneously once every week. Active norethindrone- eth estradiol (NECON) 0.5-35 MG-MCG tablet Take 1 Tablet by mouth daily. Active INOSITOL OR 4 Tablets daily. A ctive letrozole (FEMARA) 2.5 MG tabletIndicati ons:Irregular periods/menstr ual cycles Take 1 Tablet (2.5 mg) by mouth daily for 5 days. Start on day 3 of your cycle 5 Tablet Active Active Problems Problem Noted Date Diagnosed Date Bicornuate uterus 07/20/2025 Morbid obesity 07/20/2025 Irregular periods/menstrual cycles 07/20/2025 Encounters Date Type Department Care Team Description 08/09/2025 Telephone [facility] OB-JACK FRAME TENDER [address] [address] Sophy Bianchi MD INFERTILITY 07/24/2025 Results Follow-Up [facility] OB-JACK FRAME TENDER [address] [address] Honey Szymanski RN 07/20/2025 11:30 AM CDT Lab Visit [facility] Laboratory [address] [address] Irregular periods/menstrual cycles 07/20/2025 11:00 AM CDT Office Visit [facility] OB-JACK FRAME TENDER [address] [address] Sophy Bianchi MD Irregular periods/menstrual cycles (Primary Dx); Morbid obesity (HRC); Bicornuate uterus 07/04/2025 Telephone [place] Certified Nurse Advertising Traffic Manager [address] [place] [address] Inessa Crawford APRN, CNM ERRONEOUS ENTRY 07/04/2025 Telephone [facility] OB-JACK FRAME TENDER [address] [address] Sophy Bianchi MD Appt. Needed from Last 3 Months Immunizations Immunization Administration Dates Next Due DTP 01/17/1999, 5,03/12/1994,1993,1993 Flu Vac Preserv Free (3+yrs) 11/25/2024 HepB Ped/Adol (0-18 yrs) 07/23/1994,1993,1 11/26/1992 Hib, Unspecified Formulation 12/12/1994, 03/12/1994,01/17/1994,1993 Influenza IIV4 (Quadrivalent ) 0.5mL (69202) 09/25/2021,2017,08/25/2016 MMR 01/17/1999,12/12/1994 Moderna COVID-19 12+ (Spikevax) 04/12/2024 Moderna Monovalent 12+ 09/08/2021,01/03/2021,08/2021 OPV, Trivalent (Orimune or tOPV) 999,12/12/1994,01/17/1994,1993 TB Skin Test (PPD) 09/07/2012,08/27/2012 Tdap 08/25/2016,07/08/2006 Varicella 08/27/2012(Deferred: Immune by Disease),07/24/2003 Social History Tobacco Use Types Packs/Day Years [...] Orientation Lesbian 07/20/2025 10 :56 AM CDT Last Filed Vital Signs Vital Sign Reading Time Taken Comments Blood Pressure 122/92 07/20/2025 10:55 AM CDT Pulse 96 07/20/2025 10:55 AM CDT Temperature 37.1 C (98.8 F) 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 Respiratory Rate - - Oxygen Saturation - - Inhaled Oxygen Concentration - - Weight 167.8 kg (370 lb) 07/20/2025 10:55 AM CDT Height - - Body Mass Index - - Plan of Treatment Upcoming Encounters Date Type Department Care Team (Late st Contact Info) Description 08/15/2025 10:00 AM CDT Appointment [address] [phone] Health Maintenance Due Date Last Done Comments Cervical Cancer Screening Due 1993 Hep C Screening (Preventive Services) 1993 Adult Preventive Visit 2011 HPV Vaccine (1 - 3-dose SCDM series) 2020 COVID-19 Vaccine ( - season) 2025 04/12/2024, 09/08/2021, 01/03/2021, Additional history exists Influenza Vaccine (#1) 2025 , 09/25/2021, 2017, Additional history exists DTaP/Tdap/Td Vaccine (8 - Tdap) 08/25/2026 08/25/2016, 07/08/2006, 01/17/1999, Additional history exists Zoster/Shingles Vaccine (1 of 2) 2043 HepB Vaccine Completed 07/23/1994, 10/26, 1993 Hib Vaccine Completed 12/12/1994, 02/23, 01/17/1994, Additional history exists IPV (Polio) Vaccine Completed 01/17/1999, 12/12/1994, 01/17/1994, Additional history exists HIV Screening (Preventive Services) Completed 09/25/2021 HepA Vaccine Aged Out No longer eligi ble based on patient's age to complete this topic MCV4 Vaccine Aged Out No longer eligi ble based on patient's age to complete this topic Meningococcal B Vaccine Aged Out No l onger eligible based on patient's age to complete this topic Pneumococcal Vaccine Aged Out No long er eligible based on patient's age to complete this topic Procedures Procedure Name Priority Date/Time Associated Diagnosis Comments TESTOSTERONE, FEMALE OR CHILDREN Routine 07/20/2025 11:22 AM CDT Irregular periods/menstrual cycles (17) [place] PROGESTERONE PLASMA/SE Routine 07/20/2025 11:22 AM CDT Irregular periods/menstrual cycles DHEA SULFATE Routine 07/20/2025 11:22 AM CDT Irregular periods/menstrual cycles ANDROSTENEDIONE Routine 07/20/2025 11:22 AM CDT Irregular periods/menstrual cycles TSH, SENSITIVE Routine 07/20/2025 11:22 AM CDT Irregular periods/menstrual cycles HGB A1C Routine 07/20/2025 11:22 AM CDT Irregular periods/menstrual cycles FSH Routine 07/20/2025 11:22 AM CDT Irregular periods/menstrual cycles ANTI-MULLERIAN HORMONE,ADULT FEMALE Routine 07/20/2025 11:22 AM CDT Irregular periods/menstrual cycles from Last 3 Months Results * Androstenedione (07/20/2025 11:22 AM CDT) Androstenedione 1.105 0.260 - 2.140 ng/mL 07/24/2025 1:58 PM CDT [facility] Comment: INTERPRETIVE INFORMATION: Androstenedione, Females 18 years and older Post-menopausal: 0.13-0.82 ng/mL REFERENCE INTERVAL: Androstenedione by TMS Access complete set of age- and/or gender-specific reference intervals for this test in the [facility] Test Directory ([facility]). This test was developed and its performance characteristics determined by [facility]. It has not been cleared or approved by the US Food and Drug Administration. This test was performed in a CLIA certified laboratory and is intended for clinical purposes. Performed By: [facility] [address] [place] [address] Contract Paralegal: Paolo Brewer MD, PhD CLIA Number: [id number] Blood Venipuncture / Unknown 07/20/2025 11:22 AM CDT 07/20/2025 11:22 AM CDT us Sophy Bianchi MD LAB_1 Final Result [facility] CLIA: [id number] [address] [place] [address], [facility] * Testosterone, female or children (07/20/2025 11:22 AM CDT) Testosterone Female or Children 45 9 - 55 ng/dL 07/24/2025 1:58 PM CDT [facility] Comment: REFERENCE INTERVAL: Testosterone by Publications Designer Females Premenopausal 9-55 ng/dL Postmenopausal 5-32 ng/dL INTERPRETIVE INFORMATION: Testosterone by Publications Designer Free or bioavailable testosterone measurements may provide supportive information. For individuals on testosterone-suppressing hormone therapies (e.g., antiandrogens or estrogens), refer to cisgender female reference intervals. For a complete set of all established reference intervals, refer to [employer]/Tests/Pub/[id number]. This test was developed and its performance characteristics determined by [facility]. It has not been cleared or approved by the US Food and Drug Administration. This test was performed in a CLIA certified laboratory and is intended for clinical purposes. Performed By: [facility] [address] [place] [address] Contract Paralegal: Paolo Brewer MD, PhD CLIA Number: [id number] Blood Venipuncture / Unknown 07/20/2025 11:22 AM CDT 07/20/2025 11:22 AM CDT Sophy Bianchi MD LAB_[address] [facility] CLIA: [id number] [address] [place] [id number], [place] * Anti-Mullerian Hormone, Adult Females (07/20/2025 11:22 AM CDT) Anti-M llerian Hormone, Adult Females 1.22 0.36 - 10.07 ng/mL 07/21/2025 10:57 AM CDT [facility] Blood Venipuncture / Unknown 07/20/2025 11:22 AM CDT 07/20/2025 11:22 AM CDT Sophy Bianchi MD LAB_1 Final Result [facility] CLIA: [id number] [address] [place], [place] [id number], [place] * TSH (07/20/2025 11:22 AM CDT) TSH, Sensitive 2.34 0.30 - 4.50 uIU/mL 07/20/2025 2:49 PM CDT [facility] Blood Venipuncture / Unknown 07/20/2025 11:22 AM CDT 07/20/2025 11:22 AM CDT Sophy Bianchi MD LAB_1 Final Result [facility] CLIA: [id number] [address] * DHEA Sulfate (07/20/2025 11:22 AM CDT) DHEA Sulfate 172 23 - 266 mcg/dl 07/21/2025 10:24 AM CDT [facility] Blood Venipuncture / Unknown 07/20/2025 11:22 AM CDT 07/20/2025 11:22 AM CDT Sophy Bianchi MD LAB_1 Final Result [facility] CLIA: [id number] [address] * (17) [place] Progesterone (07/20/2025 11:22 AM CDT) 17-Hydroxyprogester one, HPLC-MS/MS 28.70 <=206.00 ng/dL 07/25/2025 4:51 AM CDT [facility] Comment: INTERPRETIVE INFORMATION for 17-Hydroxyprogesterone in females: Follicular 15 to 70 ng/dL Luteal 35 to 290 ng/dL REFERENCE INTERVAL: 17-Hydroxyprogesterone Qnt, HPLC-MS/MS Access complete set of age- and/or gender-specific reference intervals for this test in the [facility] Test Directory ([facility]Al[facility]). This test was developed and its performance characteristics determined by [facility]. It has not been cleared or approved by the US Food and Drug Administration. This test was performed in a CLIA certified laboratory and is intended for clinical purposes. Performed By: [facility] [address] [place] [address] Contract Paralegal: Paolo Brewer MD, PhD CLIA Number: [id number] Blood Venipuncture / Unknown 07/20/2025 11:22 AM CDT 07/20/2025 11:22 AM CDT Sophy Bianchi MD LAB_1 Final Result Performing Organization Address [facility]/ZIP Co de Phone Number [facility] CLIA: [id number] [address] [place] [address], [place] * FSH (07/20/2025 11:22 AM CDT) FSH 1.4 mIU/mL 07/20/2025 2:49 PM CDT [facility] Blood Venipuncture / Unknown 07/20/2025 11:22 AM CDT 07/20/2025 11:22 AM CDT Narrative [facility] - 07/20/2025 2:49 PM CDT Expected values for mensturating females Follicular Phase: 3.0-8.1 mIU/mL Mid-Cycle Peak: 2.6-16.7 mIU/mL Luteal Phase: 1.4-5.5 mIU/mL Post Menopausal Females without HRT: 26.8-133.4 mIU/mL Sophy Bianchi MD LAB_1 Final Result [facility] CLIA: [id number] [address] [place] [address] * Hgb A1C (07/20/2025 11:22 AM CDT) Hemoglobin A1C 5.5 <=5.6 % 07/20/2025 5:29 PM CDT [facility] Estimated Average Glucose (Calc) 111 < 117 mg/dL 07/20/2025 5:29 PM CDT [facility] Comment:Estimated average gl ucose (eAG) converts A1c into glucose units (mg/dL) and estimates average glucose over the past approximately 3 months. The eAG reference interval (<117 mg/dL) corresponds to an A1c of <5.7%. Blood Venipuncture / Unknown 07/20/2025 11:22 AM CDT 07/20/2025 11:22 AM CDT us Sophy Bianchi MD LAB_1 Final Result [facility] CLIA: [id number] [address] [place] [address], [facility] from Last 3 Months Insurance [place] [id number] [employer] [facility] ELECT OUTSIDE [facility] Care Teams Voice Engineer Relationship Specialty Start Date End Date Urabn Huerta MD [address] [facility] [place] [address] [facility] - General 10/31/19
--- OUTSIDE RECORDS SUMMARY | 2025-08-09 19:54 | XMS_ITS | Clinical Summary ---
Author Organization [facility] Address [address] [place] [address] Care Team Providers Care Head Of Marketing Adometry Name Role Phone No Ref-Primary, Physician Primary Care Provider Allergies No known active allergies Medications No known medications Active Problems No known active problems Social History Tobacco Use Types Packs/Day Years Used Date Smoking Tobacco: Never Assessed Comments Unknown Sex and Gender Information Value Date Recorded Sex Assigned at Not on file Legal Sex Female 6:55 PM CDT Gender Identity Not on file Sexual Orientation Not on file Last Filed Vital Signs Vital Sign Reading Time Taken Comments Blood Pressure 118/74 08/07/2019 7:45 PM CDT Pulse 93 08/07/2019 7:45 PM CDT Temperature 36.9 C (98.5 F) 08/07/2019 7:45 PM CDT Respiratory Rate 20 08/07/2019 7:45 PM CDT Oxygen Saturation 96% 08/07/2019 7:45 PM CDT Inhaled Oxygen Concentration - - Weight 147.8 kg (325 lb 14.4 oz) 08/07/2019 7:45 PM CDT Height 169.5 cm (5' 6.75) 08/07/2019 7:45 PM CD T Body Mass Index 51.43 08/07/2019 7:45 PM CDT Plan of Treatment Not on file Insurance Mario [id number] [place] [id number] BCBS OUT OF STATE Care Teams Head Of Marketing Adometry Relationship Specialty Start Date End Date No Ref-Primary, Physician PCP - General 08/07/19
--- OUTSIDE RECORDS SUMMARY | 2025-08-09 19:54 | XMS_ITS | Encounter Summary ---
Author Organization [facility] Address [address], [place] [address] Care Team Providers Care Supervisor Burling And Joining Name Role Phone Urban Huerta MD Primary Care Provider +1- [phone] Encounter Details Date Type Department Care Team (Late st Contact Info) Description 07/24/2025 Results Follow-Up [facility] OB-FIBER OPTIC ASSEMBLER [address] [address] Honey Szymanski RN Social History Tobacco Use Types Packs/Day Years [...] Info) Description 08/15/2025 10:00 AM CDT Appointment [facility] [address] [place] [phone] documented as of this encounter Visit Diagnoses Not on filedocumented in this encounter Care Teams Supervisor Burling And Joining Relationship Specialty Start Date End Date Urban Huerta MD [address] [place], [place] [address] [address] PCP - General 10/31/19 documented as of this encounter
--- OUTSIDE RECORDS SUMMARY | 2025-08-09 19:54 | XMS_ITS | Encounter Summary ---
Author Organization [facility] Address [address] [place] [address] Care Team Providers Care Investment Professional Name Role Phone Urban Huerta MD Primary Care Provider +1- [phone] Reason for Visit * Reason Comments Appt. Needed Encounter Details Date Type Department Care Team (Late st Contact Info) Description 07/04/2025 Telephone [place] OB-ADDRESSER [place] [address] [place] [address] Sophy Bianchi MD [address] [place] [address] Appt. Needed Social History Tobacco Use Types Packs/Day Years Used Date Smoking Tobacco: Never Alcohol Use Standard Drinks/Week Comments Not Asked 0 (1 standard drink = 0.6 oz pur e alcohol) Comments No Sex and Gender Information Value Date Recorded Sex Assigned at Not on file Legal Sex Female 5:39 AM CDT Gender Identity Not on file Sexual Orientation Lesbian 07/20/2025 10 :56 AM CDT documented as of this encounter Nursing Notes * Denise Gomez RN - 07/04/2025 11:07 AM CDT Pt calling in, new to [facility], requests trigger shots for infertility. Aware [facility] doesn't offer IUI.Consult scheduled for 07/20. Future Appointments Date Time Provider Department Center 07/20/2025 11:00 AM Sophy Bianchi MD [facility] documented in this encounter Plan of Treatment Upcoming Encounters Date Type Department Care Team (Late st Contact Info) Description 08/15/2025 10:00 AM CDT Appointment [facility] [address] [place] [address] documented as of this encounter Visit Diagnoses Not on filedocumented in this encounter Care Teams Investment Professional Relationship Specialty Start Date End Date Urban Huerta MD [address] [place] [address] PCP - General 10/31/19 documented as of this encounter
--- OUTSIDE RECORDS SUMMARY | 2025-08-09 19:54 | XMS_ITS | Encounter Summary ---
Author Organization [facility] Address [address], [place] [address] Care Team Providers Care Card Cutter Helper Name Role Phone Urban Huerta MD Primary Care Provider +1- [phone] Reason for Visit * Reason Comments ERRONEOUS ENTRY Encounter Details Date Type Department Care Team (Late Contact Info) Description 07/04/2025 Telephone [place] Certified Nurse Radio Disc Jockey [address] [place], [place] [phone] Inessa Crawford APRN, CN [address] [facility] [address] [place], [place] [address] ERRONEOUS ENTRY Social History Tobacco Use Types Packs/Day Years Used Date Smoking Tobacco: Never Assessed Comments No Sex and Gender Information Value Date Recorded Sex Assigned at Not on file Legal Sex Female 5:39 AM CDT Gender Identity Not on file Sexual Orientation Lesbian 07/20/2025 10 :56 AM CDT documented as of this encounter Plan of Treatment Upcoming Encounters Date Type Department Care Team (Late Contact Info) Description 08/15/2025 10:00 AM CDT Appointment [facility] [address] [place] [phone] documented as of this encounter Visit Diagnoses Not on filedocumented in this encounter Care Teams Card Cutter Helper Relationship Specialty Start Date End Date Urban Huerta MD [address] [place] [address] PCP - General 10/31/19 documented as of this encounter
[2025-08-09 19:58] VITALS: BP 146/93; PULSE 114; RESP 20; TEMP 36.2; O2SAT 98; BMI 58.3
--- NOTE | 2025-08-09 21:20 | ED.ABDPAIN ---
HPI - Abdominal Pain General Chief Complaint: Abdominal Pain Stated Complaint: gall bladder pain Time Seen by Provider: 08/09/25 20:47 History of Present Illness HPI narrative: This 29-year-old female comes in reporting abdominal pain after taking a slice of pizza prior to arrival. She states that the pain was very severe and now has dissipated. She has been having pain when taking food at times in wonders if it is her gallbladder. She states that there is family history of gallbladder problems like this. She does not report any fevers, nausea, or vomiting. She states that the pain is in the right upper quadrant and radiates to her shoulder and into her back and also to the mid abdomen. Related Data Home Medications ?Medication ?Instructions ?Recorded ?Confirmed ferrous sulfate 325 mg (65 mg 325 mg PO Q1D 08/09/25 08/09/25 iron) tablet,delayed release letrozole 2.5 mg tablet 2.5 mg PO DAILY 08/09/25 08/09/25 misoprostol 200 mcg tablet 200 mcg vaginal DAILY 08/09/25 08/09/25 tirzepatide (weight loss) 15 15 mg subcut 08/09/25 mg/0.5 mL subcutaneous pen injector (Zepbound) Allergies Allergy/AdvReac Type Severity Reaction Status Date / Time No Known Drug Allergies Allergy Verified 08/09/25 20:05 Review of Systems Status of ROS Reports: 10 or more systems reviewed and unremarkable except as noted in History and below Narrative Constitutional: No fevers, no weight gain or loss. Eyes: No discharge. No vision changes. HENT: No congestion, no sore throat, no ear pain. Cardiovascular: No chest pain, no palpitations. Respiratory: No shortness of breath, no wheezes, no cough. Gastrointestinal: No vomiting, no diarrhea. Abdominal pain as described above. Genitourinary: No dysuria, no hematuria. Musculoskeletal: Normal range of motion. Skin: No rashes, no pruritis. Neurological: No dizziness, weakness, sensory change, speech change. Endo/Heme/Allergies: No bruising or bleeding. No polydipsia. Pysch: no suicidality, no anxiety, no insomnia. All other systems reviewed and are negative. Exam Narrative: Exam Narrative: Constitutional: Well-developed, well-nourished, no acute distress. HEENT: Normocephalic, atraumatic. Neck: Normal range of motion. Nontender. Supple. Heart: Regular. No murmurs. Normal rate. Intact distal pulses. Lungs: Clear to auscultation. No chest discomfort. No wheezes, rhonchi, or rales. Abdomen: Normal bowel sounds. Tenderness in the right upper quadrant. No rebound tenderness. Genitalia: Deferred. Back: No midline tenderness. Normal range of motion. Extremities: Normal range of motion. No injury. Skin: Intact. No rash. Warm. No erythema or pallor. Neurologic: No altered sensation. No weakness. Alert and oriented. Psychiatric: No suicidality. No anxiety or depression. No insomnia. Nursing notes and vitals signs are reviewed. Const: Vital Signs, click to edit/add: Vital Signs - 24 hr 08/09/25 19:58 Temperature 97.1 F L Pulse Rate [Pulse Oximeter] 114 H Respiratory Rate 20 Blood Pressure [Ri ght Upper Arm] 146/93 H Pulse Oximetry 98 Oxygen Delivery Me thod Room Air Course Vital Signs Vital signs: Initial Vital Signs Temperature 97.1 F L 08/09/25 19:58 Temperature Source Temporal Artery Scan 08/09/25 19:58 Pulse Rate 114 H 08/09/25 19:58 Respiratory Rate 20 08/09/25 19:58 Blood Pressure 146/93 H 08/09/25 19:58 Blood Pressure Mean 110 H 08/09/25 19:58 Blood Pressure Position Sitting 08/09/25 19:58 Pulse Oximetry 98 08/09/25 19:58 Oxygen Delivery Method Room Air 08/09/25 19:58 Vital Signs Temperature 97.1 F L 08/09/25 19:58 Pulse Rate 114 H 08/09/25 19:58 Respiratory Rate 20 08/09/25 19:58 Blood Pressure 146/93 H 08/09/25 19:58 Pulse Oximetry 98 08/09/25 19:58 Oxygen Delivery Method Room Air 08/09/25 19:58 Temperature 97.1 F L 08/09/25 19:58 Pulse Rate 114 H 08/09/25 19:58 Respiratory Rate 20 08/09/25 19:58 Blood Pressure 146/93 H 08/09/25 19:58 Pulse Oximetry 98 08/09/25 19:58 Oxygen Delivery Method Room Air 08/09/25 19:58 MDM - Abdominal Pain MDM Narrative Medical decision making narrative: This patient has all the classic symptoms of gallbladder disease with postprandial pain in the right upper quadrant. She is not showing any signs of obstruction or infection. I did use bedside ultrasound to attempt to evaluate her gallbladder but these images were poor for viewing her gallbladder due to body habitus. I did see her gallbladder which was rather contracted and difficult to discern if there were any stones present. I advised the patient to follow-up with surgery clinic for further evaluation and likely need for cholecystectomy. The patient did receive [facility] prescriptions for Toradol and Hope. Discharge Plan Discharge Clinical Impression: Biliary colic Patient Disposition: Home, Self-Care Condition: Stable Additional Instructions: Take medication as needed and indicated. Return if pain is not adequately managed or if developing fever or other worsening symptoms. Follow-up with surgery clinic for further diagnosis and treatment. Call [phone] for appointment. Prescriptions: No Action misoprostol 200 mcg tablet 200 mcg vaginal DAILY letrozole 2.5 mg tablet 2.5 mg PO DAILY ferrous sulfate 325 mg (65 mg iron) tablet,delayed release (DR/EC) 325 mg PO Q1D Zepbound 15 mg/0.5 mL pen injector 15 mg subcut Follow Up/Referrals: Provider,Not a Local [Primary Care Provider, Family Practice] Stand Alone Forms: MyHealth Info Instructions Procedures POC Ultrasound Abdomen Limited Anatomical areas examined: Gallbladder, liver, right kidney. Indications: Postprandial right upper quadrant abdominal pain. Description/ Findings: The gallbladder is poorly visualized on this exam due to obesity. Additionally she ate recently causing the gallbladder to be contracted. Impression: Inconclusive imaging of gallbladder.
== END 2025-08-09 21:40 | disposition home or self-care (01) ==
PROVIDERS: Emergency Provider Emergency Medicine Emergency Medical Services
DX: K80.50 Calculus of bile duct without cholangitis or cholecystitis without obstruction (principal)
CPT/HCPCS: 76705; 99283; 99284